=== PATIENT | female | born 1925 | race Caucasian/White ===

== ENCOUNTER 2016-09-24 12:26 | Observation (INO) | payer MEDICARE, BC ==
[~2016-09-24] VITALS: Ht 160 cm; Wt 63.3 kg
[~2016-09-24 12:26] MED LIST: CALCTAB23 PO; DIGO0.12 PO; DIGO1TAB59; ESTR42.5V; GABA100C4 PO; HYDR-3516 PO; LEVO.125 PO; METO50TA PO; MIRA33504 PO; MULT400T PO; TRAM50TA PO; XARE10TA PO; XARE15TA
[2016-09-24 12:32] VITALS: BP 141/90; PULSE 114; RESP 18; TEMP 99.7; O2SAT 92
[2016-09-24] MEDS ORDERED: CENTCHW4 CHEW (12:59)
[2016-09-24] MEDS ORDERED: CALTCHW5 PO (12:59)
[2016-09-24 13:19] LABS: AUTOMATED NEUTROPHIL # 11.8 TH/MM3 (1.8-7.7); BASOPHIL # 0.1 TH/MM3 (0-0.2); BASOPHIL % 0.8 % (0.0-2.0); EOSINOPHIL % 0.1 % (0.0-4.0); HEMATOCRIT 37.8 % (35.0-46.0); LYMPH % 3.8 % (9.0-44.0); LYMPHOCYTE # 0.5 TH/MM3 (1.0-4.8); MEAN CELL VOLUME 89.5 FL (80.0-100.0); MEAN CORPUSCULAR HEMOGLOBIN 30.4 PG (27.0-34.0); MEAN CORPUSCULAR HGB CONC 33.9 % (32.0-36.0); MONO % 4.9 % (0.0-8.0); NEUT % 90.4 % (16.0-70.0); PLATELET COUNT 307 TH/MM3 (150-450); RED BLOOD COUNT 4.23 MIL/MM3 (4.00-5.30); RED CELL DISTRIBUTION WIDTH 13.7 % (11.6-17.2)
[2016-09-24 13:22] LABS: HEMO FLAGS AUTO DIFF
[2016-09-24 13:26] LABS: BLOOD, URINE MOD (NEG); GLUCOSE,URINE NEG (NEG); KETONE, URINE NEG (NEG); METHOD OF COLLECTION CATH; NITRITE,URINE POS (NEG); URINE COLOR YELLOW (YELLW/STRAW)
[2016-09-24 13:28] LABS: BACTERIA, URINE MANY /hpf; COMMENT (UR) CULTURE INDICATED; CULTURE IF INDICATED CULTURE INDICATED
[2016-09-24 13:28] LABS: POTASSIUM 3.8 MEQ/L (3.5-5.1)
[2016-09-24 13:31] LABS: BICARBONATE 28.7 MEQ/L (21.0-32.0)
[2016-09-24] MEDS ORDERED: HYDROmorphone HCL PF 1 MG/ML VIAL IV PUSH ONE (13:45)
[2016-09-24] MEDS ORDERED: ONDANSETRON HCL 4 MG/2 ML VIAL IV PUSH ONE (13:45)
[2016-09-24 13:55] LABS: SCAN/DIFF AUTO DIFF CONFIRMED
[2016-09-24] MEDS ORDERED: SODIUM CHLORID 0.9% 500 ML INJ 500 ML IV ONE (14:00)
[2016-09-24] MEDS ORDERED: cefTRIAXone INJ 1,000 MG in SODIUM CHLORIDE 0.9% INJ 100 ML IV ONE (14:00)
--- NOTE | 2016-09-24 14:05 | PD ---
HPI Chief Complaint: GI Complaint Time Seen by Provider: 12:50 Travel History International Travel<30 days: No Contact w/Intl Traveler<30days: No Traveled to known affect area: No History of Present Illness HPI This 89-year-old female is complaining of lower abdominal pain. She thinks she may be impacted though she did have a bowel movement earlier today. She does urinate quite frequently. She has to strain and sometimes can always get any out. She has a history of chronic back pain. She sees Dr. Chau and he has been injecting her rhomboid muscle because of pain. PFSH Past Medical History Hx Anticoagulant Therapy: Yes Arthritis: Yes Asthma: No Atrial Fibrillation: Yes Blood Disorders: No Anxiety: Yes Depression: No Heart Rhythm Problems: No Cancer: Yes (THYROID) Cardiovascular Problems: Yes High Cholesterol: Yes Chemotherapy: No Chest Pain: No Congestive Heart Failure: No Cerebrovascular Accident: No Diabetes: No (DIET CONTROLLED) Diminished Hearing: No Endocrine: Yes Gastrointestinal Disorders: Yes (GERD) GERD: Yes Glaucoma: No Genitourinary: No Headaches: No Hepatitis: No Hiatal Hernia: Yes Hypertension: Yes Immune Disorder: No Medical other: Yes (HX GASTRIC ULCER) Musculoskeletal: Yes (L SHOULDER PAIN) Neurologic: No Psychiatric: Yes Reproductive: No Respiratory: No Migraines: Yes (AURAS FLASHES ) Myocardial Infarction: Yes Radiation Therapy: No Renal Failure: No Seizures: No Sleep Apnea: No Thyroid Disease: Yes Ulcer: No Influenza Vaccination: Yes ?: Not Menopausal: Yes Past Surgical History Abdominal Surgery: Yes (ROCAEL FEMORAL HERNIA REPAIR) AICD: No Arteriovenous Shunt: No Body Medical Devices: PAIN STIMULATOR Cardiac Surgery: Yes (OPEN HEART SX REPAIR VALVE ; PACEMAKER) Cholecystectomy: No Ear Surgery: No Endocrine Surgery: Yes (THYROID CA. ) Eye Surgery: Yes (ROCAEL CATARACT SX) Genitourinary Surgery: No Gynecologic Surgery: No Insulin Pump: No Joint Replacement: Yes (LEFT SHOULDER) Neurologic Surgery: Yes (LUMBAR LAMINECTOMY) Oral Surgery: Yes (DEVIATED NASAL SEPTUM) Pacemaker: Yes (BIOTRONIC) Thoracic Surgery: Yes (SPINAL STIMULATOR IN LOWER LEFT BACK ) Other Surgery: Yes Social History Alcohol Use: No Tobacco Use: No Substance Use: No Allergies-Medications (Allergen,Severity, Reaction): Coded Allergies: Contrast Media (Verified Allergy, Severe, HIVES, 09/24/16) Quinine (Verified Allergy, Intermediate, SOB, CONGESTION, ITCH, 09/24/16) Reported Meds & Prescriptions Reported Meds & Active Scripts Active Reported Caltrate 600+D Chew (Calcium Carbonate-Vitamin D Chew) 600-400 Mg-Unit Chew 1 Tab PO BID Centrum (Multiple Vitamins W/ Minerals) 1 Chew 1 Tab CHEW DAILY Digitek (Digoxin) 0.125 Mg Tab Xarelto (Rivaroxaban) 15 Mg Tab Synthroid (Levothyroxine Sodium) 125 Mcg Tab 125 Mcg PO DAILY Tramadol (Tramadol HCl) 50 Mg Tab 50 Mg PO Q8H PRN Hydrocodone-Acetaminophen 5-325 mg Tab 1 Tab PO BID PRN Multaq (Dronedarone) 400 Mg Tab 400 Mg PO BID Metoprolol Tartrate 50 Mg Tab 50 Mg PO BID Review of Systems General / Constitutional: No: Fever, Chills Eyes: No: Diploplia, Blurred Vision HENT: No: Headaches, Vertigo Cardiovascular: No: Chest Pain or Discomfort Respiratory: No: Cough Gastrointestinal: Positive: Abdominal Pain, Constipation, No: Nausea, Hematemesis, Hematochezia Genitourinary: Positive: Urgency, Frequency Musculoskeletal: No: Myalgias, Arthralgias Skin: No Rash Neurologic: Positive: Weakness Endocrine: No: Heat Intolerance Hematologic/Lymphatic: No: Easy Bruising Physical Exam Narrative GENERAL: Thin female. Heart rate on arrival 114. Temp is 99 7 SKIN: Focused skin assessment warm/dry. HEAD: Atraumatic. Normocephalic. EYES: Pupils equal and round. No scleral icterus. No injection or drainage. ENT: No nasal bleeding or discharge. Mucous membranes pink and moist. NECK: Trachea midline. No JVD. CARDIOVASCULAR: Rapid Regular rate and rhythm. No murmur appreciated. RESPIRATORY: No accessory muscle use. Clear to auscultation. Breath sounds equal bilaterally. GASTROINTESTINAL: Abdomen soft, there is bilateral lower abdominal tenderness, nondistended. Hepatic and splenic margins not palpable. Rectal exam was done. There are no masses. Stool is brown and guaiac negative MUSCULOSKELETAL: No obvious deformities. No clubbing. No cyanosis. No edema. NEUROLOGICAL: Awake and alert. No obvious cranial nerve deficits. Motor grossly within normal limits. Normal speech. PSYCHIATRIC: Appropriate mood and affect; insight and judgment normal. Data Data Last Documented VS Vital Signs Date Time Temp Pulse Resp B/P Pulse Ox O2 Delivery O2 Flow Rate FiO2 09/24/16 14:40 90 18 136/71 95 Nasal Cannula 2 09/24/16 12:32 99.7 Orders Complete Blood Count With Diff (09/24/16 12:57) Basic Metabolic Panel (Bmp) (09/24/16 12:57) Urinalysis - C+S If Indicated (09/24/16 12:57) Bladder Scan PRN (09/24/16 12:57) Ct Abd/Pel W/O Iv Contrast (09/24/16 ) Urine Culture (09/24/16 13:15) Ondansetron Inj (Zofran Inj) (09/24/16 13:45) Hydromorphone Pf Inj (Dilaudid Pf Inj) (09/24/16 13:45) Ceftriaxone Inj (Rocephin Inj) (09/24/16 14:00) Blood Culture (09/24/16 13:54) Sodium Chlorid 0.9% 500 Ml Inj (Ns 500 M (09/24/16 14:00) Chest, Single Ap (09/24/16 13:57) Lactic Acid Sepsis Protocol (09/24/16 14:36) Electrocardiogram (09/24/16 12:33) Labs Laboratory Tests Test 09/24/16 09/24/16 13:10 13:15 White Blood Count 13.0 TH/MM3 Red Blood Count 4.23 MIL/MM3 Hemoglobin 12.8 GM/DL Hematocrit 37.8 % Mean Corpuscular Volume 89.5 FL Mean Corpuscular Hemoglobin 30.4 PG Mean Corpuscular Hemoglobin 33.9 % Concent Red Cell Distribution Width 13.7 % Platelet Count 307 TH/MM3 Mean Platelet Volume 6.3 FL Neutrophils (%) (Auto) 90.4 % Lymphocytes (%) (Auto) 3.8 % Monocytes (%) (Auto) 4.9 % Eosinophils (%) (Auto) 0.1 % Basophils (%) (Auto) 0.8 % Neutrophils # (Auto) 11.8 TH/MM3 Lymphocytes # (Auto) 0.5 TH/MM3 Monocytes # (Auto) 0.6 TH/MM3 Eosinophils # (Auto) 0.0 TH/MM3 Basophils # (Auto) 0.1 TH/MM3 CBC Comment AUTO DIFF Differential Comment AUTO DIFF CONFIRMED Sodium Level 139 MEQ/L Potassium Level 3.8 MEQ/L Chloride Level 102 MEQ/L Carbon Dioxide Level 28.7 MEQ/L Anion Gap 8 MEQ/L Blood Urea Nitrogen 20 MG/DL Creatinine 0.80 MG/DL Estimat Glomerular Filtration 68 ML/MIN Rate Random Glucose 114 MG/DL Calcium Level 8.8 MG/DL Urine Collection Type CATH Urine Color YELLOW Urine Turbidity CLOUDY Urine pH 6.0 Urine Specific [place] 1.021 Urine Protein TRACE mg/dL Urine Glucose (UA) NEG mg/dL Urine Ketones NEG mg/dL Urine Occult Blood MOD Urine Nitrite POS Urine Bilirubin NEG Urine Leukocyte Esterase MOD Urine WBC 25-49 /hpf Urine Bacteria MANY /hpf Microscopic Urinalysis Comment CULTURE INDICATED MDM Medical Decision Making Medical Screen Exam Complete: Yes Emergency Medical Condition: Yes Medical Record Reviewed: Yes Differential Diagnosis Differential includes UTI, constipation, diverticulitis Narrative Course Count is elevated at 13,000. Urine shows 25-[address] shows a mass in the left kidney which could be a renal carcinoma or cyst. There is a right adnexal mass and a large hiatal hernia. Impression is UTI, possible sepsis Sepsis Criteria SIRS Criteria (2 or more): Heart rate over 90, WBC > 26109, < 4000 or > 10% bands Sepsis Criteria (SIRS+source): Infect source susp/known Diagnosis Primary Impression: Urinary tract infection Qualified Code: N30.00 - Acute cystitis without hematuria Additional Impression: Sepsis Qualified Code: A41.9 - Sepsis, due to unspecified organism Admitting Information Admitting Physician Requests: Observation Peter Avendano MD Sep 24, 2016 14:05
[2016-09-24 14:40] VITALS: BP 136/71; PULSE 90; RESP 18; O2SAT 95
--- NOTE | 2016-09-24 15:08 | RADRPT ---
EXAM DATE/TIME: 09/24/2016 14:15 [facility] COMPARISON: No previous studies available for comparison. INDICATIONS : Lower abdominal pain. ORAL CONTRAST: No oral contrast ingested. RADIATION DOSE: 6.06 CTDIvol (mGy) MEDICAL HISTORY : Cardiovascular disease. Gastroesophageal reflux disease. Carcinoma, thyroid. SURGICAL HISTORY : Pacemaker. Hernia repair. Lumbar laminectomy. Spinal stimulator. ENCOUNTER: Initial ACUITY: 1 day PAIN SCALE: 3/10 LOCATION: lower quadrant TECHNIQUE: Volumetric scanning of the abdomen and pelvis was performed. Using automated exposure control and adjustment of the mA and/or kV according to patient size, radiation dose was kept as low as reasonably achievable to obtain optimal diagnostic quality images. DICOM format image data is av ailable electronically for review and comparison. FINDINGS: CT Abdomen: There is an approximate 1.6 cm mass exophytic coming off the left kidney. The liver, sple en, pancreas, right kidney, adrenals are unremarkable. There is no evidence for any appreciable patho logical adenopathy, free fluid, or bowel obstruction. There is a large hernia through the posterior portion of the hemidiaphragm on the right side medially with the stomach lying in the patient's chest for the most part. CT pelvis: There is and approximate 5 x 5.5 cm cystic mass in the right adnexa. There is moderate caroline unt of stool throughout the colon. CONCLUSION: 1. Left solid renal mass could be a complicated cyst, however renal cell carcinoma could also have th is appearance. 2. Large hiatal hernia. 3. Right adnexal cystic mass most likely ovarian. Matty Falk MD on September 24, 2016 at 15:02 Board Certified Radiologist. This report was verified electronically.
--- NOTE | 2016-09-24 15:17 | RADRPT ---
EXAM DATE/TIME: 09/24/2016 14:13 [facility] COMPARISON: CT ABDOMEN & PELVIS W/O CONTRAST, September 24, 2016, 14:15. CHEST SINGLE AP, January 18, 2014, 10:37. INDICATIONS : Fever, posterior chest pain MEDICAL HISTORY : Cardiovascular disease. SURGICAL HISTORY : Pacemaker. CABG. ENCOUNTER: Initial ACUITY: 2 days PAIN SCORE: 10/10 LOCATION: Bilateral chest FINDINGS: The lungs are clear without infiltrate, nodule, or mass. There is no appreciable pleural effusion fo r technique. Heart and mediastinum are unremarkable. Left subclavian pacer wires are present with ti ps in the right atrium and right ventricle. Huge hiatal hernia is seen. CONCLUSION: No acute cardiopulmonary disease. Matty Falk MD on September 24, 2016 at 15:15 Board Certified Radiologist. This report was verified electronically.
[2016-09-24] MEDS ORDERED: SODIUM CHLORIDE 0.9% FLUSH 10 ML FLUSH IV FLUSH PRN (15:45)
[2016-09-24] MEDS ORDERED: ONDANSETRON HCL 4 MG/2 ML VIAL IVP PRN (15:45)
[2016-09-24] MEDS ORDERED: ACETAMINOPHEN 325 MG TAB PO PRN (15:45)
[2016-09-24] MEDS ORDERED: DOCUSATE SODIUM 50 MG/SENNA 8.6 MG TAB PO PRN (15:45)
[2016-09-24] MEDS ORDERED: DEXTROSE 50% IN WATER 50 ML VIAL(D50) IV PRN (16:00)
[2016-09-24] MEDS ORDERED: GLUCAGON 1 MG/ML VIAL OTHER PRN (16:00)
[2016-09-24] MEDS: INSULIN ASPART SUPPLEMENTAL SCALE SQ SCH ×2 (16:00→21:00)
[2016-09-24] MEDS: SODIUM CHLOR 0.9% 1000 ML INJ 1,000 ML IV SCH (16:19)
[2016-09-24 16:32] VITALS: BP 147/85; PULSE 88; RESP 18; O2SAT 97
[2016-09-24] MEDS ORDERED: oxyCODONE/ACETAMINOPHEN 10 MG/325 MG TAB PO PRN (17:00)
[2016-09-24] MEDS ORDERED: MORPHINE SULFATE 8 MG/ML INJ IV PUSH PRN ×2 (17:30)
--- NOTE | 2016-09-24 17:41 | HHI.HP ---
[facility] Service [facility] Primary Care Physician Khloe Nix MD Admission Diagnosis UTI, SEPSIS Diagnoses: Chief Complaint: Right shoulder pain, lower abdominal discomfort, dysuria urgency frequency Travel History International Travel<30 Days: No Contact w/Intl Traveler <30 Da: No Traveled to Known Affected Are: No History of Present Illness 89 years old female with history of chronic pain presented to the ED complaining of right shoulder pain and lower abdominal discomfort and dysuria. Also she complained of constipation patient thought she had fecal impact patient. Dysuria urgency and frequency. Patient followed Dr. Chau for pain management. She denied any fever or chills, reported occasional night sweat, she's not sure about weight loss. In ED she was found to have a positive UA for UTI, and CT abdomen showed left solid renal mass suspicious for RCC. Patient started on a dose of Rocephin and a dose of Dilaudid for her pain. 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 fib CHF GRD Spinal stenosis Urinary incontinence Past Surgical History Shoulder surgery Thyroidectomy Umbilical hernia repair Back surgery for spinal stenosis Heart Valve repair Right breast biopsy and left breast biopsy Cataract surgery Allergies: Coded Allergies: Contrast Media (Verified Allergy, Severe, HIVES, 09/24/16) Quinine (Verified Allergy, Intermediate, SOB, CONGESTION, ITCH, 09/24/16) Family History No significant history of cancer or heart disease per the patient Social History Patient is a no alcohol or illicit drug abuse, she quit smoking in 1949 Physical Exam Vital Signs Vital Signs Date Time Temp Pulse Resp B/P Pulse Ox O2 Delivery O2 Flow Rate FiO2 09/24/16 16:32 88 18 147/85 97 Nasal Cannula 2 09/24/16 14:40 90 18 136/71 95 Nasal Cannula 2 09/24/16 14:19 18 09/24/16 12:32 99.7 114 18 141/90 92 Physical Exam GENERAL: This is a well-nourished, well-developed patient, in no apparent distress. SKIN: No rashes, warm and dry HEAD: Atraumatic. Normocephalic. EYES: Pupils equal round and reactive. Extraocular motions intact. No scleral icterus. ENT: Nose without bleeding, or drainage, Airway patent. NECK: Trachea midline. Supple CARDIOVASCULAR: Regular rate and rhythm without murmurs, gallops, or rubs. RESPIRATORY: Fair air entry bilaterally. No wheezes, rales, or rhonchi. GASTROINTESTINAL: Abdomen soft, non-tender, nondistended. Positive bowel sounds MUSCULOSKELETAL: Extremities without clubbing, cyanosis, or edema. Pedal pulses appreciated NEUROLOGICAL: Awake and alert. Moves all extremity. Normal speech.no focal neurological deficit Laboratory Laboratory Tests Test 09/24/16 09/24/16 09/24/16 13:10 13:15 14:35 White Blood Count 13.0 Red Blood Count 4.23 Hemoglobin 12.8 Hematocrit 37.8 Mean Corpuscular Volume 89.5 Mean Corpuscular Hemoglobin 30.4 Mean Corpuscular Hemoglobin 33.9 Concent Red Cell Distribution Width 13.7 Platelet Count 307 Mean Platelet Volume 6.3 Neutrophils (%) (Auto) 90.4 Lymphocytes (%) (Auto) 3.8 Monocytes (%) (Auto) 4.9 Eosinophils (%) (Auto) 0.1 Basophils (%) (Auto) 0.8 Neutrophils # (Auto) 11.8 Lymphocytes # (Auto) 0.5 Monocytes # (Auto) 0.6 Eosinophils # (Auto) 0.0 Basophils # (Auto) 0.1 CBC Comment AUTO DIFF Differential Comment AUTO DIFF CONFIRMED Sodium Level 139 Potassium Level 3.8 Chloride Level 102 Carbon Dioxide Level 28.7 Anion Gap 8 Blood Urea Nitrogen 20 Creatinine 0.80 Estimat Glomerular Filtration 68 Rate Random Glucose 114 Calcium Level 8.8 Urine Collection Type CATH Urine Color YELLOW Urine Turbidity CLOUDY Urine pH 6.0 Urine Specific [place] 1.021 Urine Protein TRACE Urine Glucose (UA) NEG Urine Ketones NEG Urine Occult Blood MOD Urine Nitrite POS Urine Bilirubin NEG Urine Leukocyte Esterase MOD Urine WBC 25-49 Urine Bacteria MANY Microscopic Urinalysis Comment CULTURE INDICATED Lactic Acid Level 1.3 Date/Time Procedure Status Source Growth 09/24/16 14:35 Aerobic Blood Culture Received Blood Peripheral Pending 09/24/16 14:35 Anaerobic Blood Culture Received Blood Peripheral Pending 09/24/16 13:15 Urine Culture Received Urine Catheterized Urine Pending Result Diagram: 09/24/16 1310 09/24/16 1310 Imaging Last Impressions Chest X-Ray 09/24/16 1357 Signed Impressions: Service Date/Time: Saturday, September 24, 2016 14:13 - CONCLUSION: No acute cardiopulmonary disease. Matty Falk MD Abdomen/Pelvis CT 09/24/16 0000 Signed Impressions: Service Date/Time: Saturday, September 24, 2016 14:15 - CONCLUSION: 1. Left solid renal mass could be a complicated cyst, however renal cell carcinoma could also have this appearance. 2. Large hiatal hernia. 3. Right adnexal cystic mass most likely ovarian. Matty Falk MD Assessment and Plan Assessment and Plan 89 years old female admitted with Suspect sepsis mostly UTI source(leukocytosis WBC 13 K, neutrophil 90%, heart rate 140) UTI Left solid renal mass on CT abdomen Right shoulder pain with history of chronic pain H/O hyaloid tumor status post thyroidectomy DVT prophylaxis SCD and heparin Plan: Admit for observation CBC BMP, CT abdomen personally reviewed by me Iv fluid Rocephin Consult urology for left renal mass Follow urine culture Pain management with morphine and [place] Discussed Condition With Patient in ED physician Jaz Medina MD Sep 24, 2016 17:41
[2016-09-24 18:41] VITALS: BP 141/66; PULSE 81; RESP 20; TEMP 99; O2SAT 95
[2016-09-24] MEDS: ACETAMINOPHEN/HYDROcodone 325 MG/5 MG TAB PO PRN (20:22)
[2016-09-24] MEDS: FAMOTIDINE 20 MG TAB PO SCH (20:22)
[2016-09-24] MEDS: SODIUM CHLORIDE 0.9% FLUSH 10 ML FLUSH IV FLUSH SCH (20:23)
[2016-09-24 22:11] VITALS: BP 129/59; PULSE 79; RESP 16; TEMP 98.6; O2SAT 94
[2016-09-25 01:24] VITALS: BP 119/59; PULSE 70; RESP 18; TEMP 98.9; O2SAT 98
[2016-09-25] MEDS: INSULIN ASPART SUPPLEMENTAL SCALE SQ SCH ×4 (05:59→20:47)
[2016-09-25 06:39] LABS: AUTOMATED NEUTROPHIL # 7.3 TH/MM3 (1.8-7.7); BASOPHIL % 0.4 % (0.0-2.0); EOSINOPHIL % 0.4 % (0.0-4.0); HEMATOCRIT 35.9 % (35.0-46.0); HEMO FLAGS DIFF FINAL; LYMPH % 11.1 % (9.0-44.0); MEAN CELL VOLUME 90.2 FL (80.0-100.0); MEAN CORPUSCULAR HEMOGLOBIN 29.7 PG (27.0-34.0); MEAN CORPUSCULAR HGB CONC 32.9 % (32.0-36.0); MONO % 7.4 % (0.0-8.0); NEUT % 80.7 % (16.0-70.0); PLATELET COUNT 277 TH/MM3 (150-450); RED BLOOD COUNT 3.99 MIL/MM3 (4.00-5.30); RED CELL DISTRIBUTION WIDTH 13.9 % (11.6-17.2)
[2016-09-25 06:55] LABS: POTASSIUM 3.5 MEQ/L (3.5-5.1)
[2016-09-25 06:59] LABS: BICARBONATE 27.4 MEQ/L (21.0-32.0)
[2016-09-25] MEDS: SODIUM CHLOR 0.9% 1000 ML INJ 1,000 ML IV SCH ×2 (07:06→09:10)
[2016-09-25 08:00] VITALS: BP 118/56; PULSE 115; RESP 16; TEMP 98.5; O2SAT 95
[2016-09-25] MEDS: SODIUM CHLORIDE 0.9% FLUSH 10 ML FLUSH IV FLUSH SCH ×2 (09:00→20:47)
[2016-09-25] MEDS: FAMOTIDINE 20 MG TAB PO SCH ×2 (09:08→20:46)
[2016-09-25] MEDS: ACETAMINOPHEN/HYDROcodone 325 MG/5 MG TAB PO PRN ×3 (09:09→20:46)
--- NOTE | 2016-09-25 09:10 | RADRPT ---
EXAM DATE/TIME: 09/25/2016 08:24 [facility] COMPARISON: CT ABDOMEN & PELVIS W/O CONTRAST, September 24, 2016, 14:15. INDICATIONS : Left renal mass. MEDICAL HISTORY : Hypothyroidism. Myocardial infarction. Gastroesophageal reflux disease. Hypertension. Hyperlipidemia. A-fib. Hiatal hernia. Thyroid cancer. Gastric ulcer. SURGICAL HISTORY : Pacemaker. ENCOUNTER: Subsequent ACUITY: 1 day PAIN SCORE: 0/10 LOCATION: Bilateral flank MEASUREMENTS: RIGHT KIDNEY: 11.7 x 4.8 x 4.2 cm LEFT KIDNEY: 10.9 x 4.1 x 5.4 cm FINDINGS: RIGHT KIDNEY: Renal cortex is thinned with normal echotexture. No hydronephrosis, stone, or mass. LEFT KIDNEY: there is some cortical thinning. Normal echogenicity. Small hypoechoic lesion on th e upper pole slightly exophytic measures 2.2 x 2.2 cm. No definite flow. BLADDER: Within normal limits given the degree of distension. CONCLUSION: 1. Small mass upper pole, likely solid. Small renal cell carcinoma cannot be excluded. Contrasted MRI recommended for further characterization. 2. Cortical thinning without hydronephrosis. Darrel Damian MD on September 25, 2016 at 9:05 Board Certified Radiologist. This report was verified electronically.
--- NOTE | 2016-09-25 10:45 | HHI.PR ---
Subjective Remarks Patient today still complaining of lower abdominal pain around 5 out of 6 Fever or chills, she denied burning sensation/dysuria today Awaiting neurology consultation Continue iv antibiotic for UTI Objective Vitals Vital Signs Date Time Temp Pulse Resp B/P Pulse Ox O2 Delivery O2 Flow Rate FiO2 09/25/16 08:00 98.5 115 16 118/56 95 09/25/16 04:00 09/25/16 01:24 98.9 70 18 119/59 98 09/24/16 22:11 98.6 79 16 129/59 94 09/24/16 18:41 99.0 81 20 141/66 95 09/24/16 16:32 88 18 147/85 97 Nasal Cannula 2 09/24/16 14:40 90 18 136/71 95 Nasal Cannula 2 09/24/16 14:19 18 09/24/16 12:32 99.7 114 18 141/90 92 I/O 09/24/16 09/24/16 09/24/16 09/25/16 09/25/16 09/25/16 06:59 14:59 22:59 06:59 14:59 22:59 Intake Total 1020 ml 750 ml Output Total 100 ml 550 ml Balance 920 ml 200 ml Intake Oral 120 ml IV Total 900 ml 750 ml Output Urine Total 100 ml 550 ml Bladder Scan Volume Amount 0 ml # Voids 1 2 2 Result Diagram: 09/25/16 0612 09/25/16 0612 Objective Remarks GENERAL: This is a well-nourished, well-developed patient, in no apparent distress. SKIN: No rashes, warm and dry HEAD: Atraumatic. Normocephalic. EYES: Pupils equal round and reactive. Extraocular motions intact. No scleral icterus. ENT: Nose without bleeding, or drainage, Airway patent. NECK: Trachea midline. Supple CARDIOVASCULAR: Regular rate and rhythm without murmurs, gallops, or rubs. RESPIRATORY: Fair air entry bilaterally. No wheezes, rales, or rhonchi. GASTROINTESTINAL: Abdomen soft, non-tender, nondistended. Positive bowel sounds MUSCULOSKELETAL: Extremities without clubbing, cyanosis, or edema. Pedal pulses appreciated NEUROLOGICAL: Awake and alert. Moves all extremity. Normal speech.no focal neurological deficit A/P Assessment and Plan 89 years old female admitted with Suspect sepsis mostly UTI source(leukocytosis WBC 13 K, neutrophil 90%, heart rate 140) UTI Left solid renal mass on CT abdomen Right shoulder pain with history of chronic pain H/O hyaloid tumor status post thyroidectomy DVT prophylaxis SCD and heparin Plan: Awaiting neurology consultation Monitor CBC BMP, CT abdomen personally reviewed by me Iv fluid Continue Rocephin iv Follow urine culture Pain management with morphine and [place] Jaz Medina MD Sep 25, 2016 10:45
[2016-09-25 12:00] VITALS: BP 101/60; PULSE 113; RESP 18; TEMP 96.6; O2SAT 92
--- NOTE | 2016-09-25 13:51 | MB ---
cc: BRIAN CADENA MD DATE OF CONSULTATION: 09/25/2016 REASON FOR CONSULTATION 1. A 2 cm left renal mass suspicious for renal cell carcinoma. 2. UTI. HISTORY OF PRESENT ILLNESS The patient is a 89-year-old female who presented to the ER yesterday afternoon with complaints of lower abdominal pain and dysuria. She also complained of inability to have a bowel movement and it was thought she had a fecal impaction. This coincided with her dysuria, urinary urgency and frequency. She had a CT of the abdomen and pelvis with contrast done which showed approximately 2 centimeter exophytic solid left renal mass suspicious for renal cell carcinoma. Urology was consulted for this finding. The patient denies any flank pain or hematuria, fevers or chills, nausea at this time. She denies history of kidney stones or previous genitourinary malignancies. She does have a remote history of tobacco use in the past. She denies any unexplained weight loss or any unusual bone or back pain. She does follow with Dr. Chau for pain management due to lower back issues. She feels much better today. She denies any lower abdominal pain at this time. REVIEW OF SYSTEMS See HPI, otherwise all systems reviewed otherwise are negative. PAST MEDICAL HISTORY Significant for: 1. Thyroid cancer. 2. Type 2 diabetes. 3. Hyperlipidemia. 4. Mitral valve insufficiency. 5. Atrial fibrillation. 6. CHF. 7. Gastroesophageal reflux disease. 8. Bowel stenosis. 9. Urinary incontinence. 10. History of UTIs. PAST SURGICAL HISTORY 1. Cataract surgery. 2. Heart valve repair. 3. Back surgery for spinal stenosis. 4. Umbilical hernia repair. 5. Thyroidectomy. 6. Shoulder surgery. ALLERGIES CONTRAST MEDIA. FAMILY HISTORY Denies urolithiasis or genitourinary malignancies. SOCIAL HISTORY The patient is a and denies illicit drug or alcohol use. She quit smoking approximately 50 years ago. PHYSICAL EXAMINATION VITAL SIGNS: Temperature 96.6, pulse 113, respiratory rate 18, BP 101/60, sating 98% on room air. GENERAL: She is alert and oriented x3. No acute distress, pleasant and cooperative lady who appears younger than her stated age. HEAD: Head is normocephalic, atraumatic. NECK: Neck is supple. Trachea is midline. No JVD. SKIN: No ulcers or rashes. Mucous membranes are pink and moist. EYES: External muscles are intact. No scleral icterus. LUNGS: Clear to auscultation bilatrally. No wheezes, gallops, rubs. CARDIOVASCULAR: Irregularly, irregular rate and rhythm. No murmurs, gallops, rubs. ABDOMEN: Soft, nontender, nondistended. Positive bowel sounds. GENITOURINARY: No CVA tenderness bilaterally. PELVIC: Not indicated at this time. EXTREMITIES: Nontender with no clubbing, cyanosis or edema. NEUROLOGIC: Cranial nerves II-XII intact. Strength is 5/5 in all four extremities. PSYCHE: Normal affect. LABORATORY DATA Labs show a white count 9.0, hemoglobin 11.8, hematocrit 35.9, platelet count 277. Sodium 141, potassium 3.5, chloride 106, bicarb 27.4, BUN 14, creatinine was 0.64. Her urine showed positive nitrate, moderate blood, moderate leukocyte esterase, culture currently pending. IMAGING STUDIES CT abdomen and pelvis with contrast images were reviewed. Per the radiologist report, the patient has a 2 cm exophytic left upper pole solid renal mass suspicious for renal cell carcinoma. ASSESSMENT The patient is an 89-year-old female with history of urinary tract infection, admitted with lower abdominal pain and was found to have incidental 2 cm exophytic left renal mass. PLAN The patient had a followup renal ultrasound this morning which confirmed the presence of a 2 cm exophytic left renal mass, appeared to be solid in nature, suspicious for renal cell carcinoma. I discussed treatment options with the patient including active surveillance versus percutaneous biopsy with subsequent cryoablation versus surgical removal of the mass. I discussed the advantages, disadvantages, potential side effects, complications of each. In my opinion due to her age and size of the mass and the fact that approximately 20% of these masses less than 3 cm are benign in nature, that would proceed with active surveillance going forward, meaning a renal ultrasound in 4 months to evaluate for growth. If the tumor decides to grow then would proceed with having radiology biopsy it, perform cryoablation. Otherwise, if the mass remains stable, would just continue following it going forward. From a urology standpoint she is okay to be discharged. She can follow up in the office and will repeat renal ultrasound in 4 months. MD JACEK Dodd/TLRandy /1:11 PM /1:27 PM
[2016-09-25] MEDS ORDERED: cefTRIAXone INJ 2,000 MG in SODIUM CHLORIDE 0.9% INJ 100 ML IV SCH (14:00)
[2016-09-25 16:00] VITALS: BP 107/64; PULSE 80; RESP 18; TEMP 96.2; O2SAT 96
[2016-09-25 20:00] VITALS: BP 105/56; PULSE 70; RESP 16; TEMP 96.8; O2SAT 95
[2016-09-26] VITALS: BP 109/59; PULSE 70; RESP 16; TEMP 97.3; O2SAT 93
[2016-09-26] MEDS: SODIUM CHLOR 0.9% 1000 ML INJ 1,000 ML IV SCH (02:41)
[2016-09-26] MEDS: ACETAMINOPHEN/HYDROcodone 325 MG/5 MG TAB PO PRN ×2 (04:33→12:48)
[2016-09-26] MEDS: INSULIN ASPART SUPPLEMENTAL SCALE SQ SCH (06:14)
[2016-09-26 08:00] VITALS: BP 161/85; PULSE 119; RESP 19; TEMP 97.6; O2SAT 94
[2016-09-26] MEDS: SODIUM CHLORIDE 0.9% FLUSH 10 ML FLUSH IV FLUSH SCH (09:00)
[2016-09-26] MEDS: FAMOTIDINE 20 MG TAB PO SCH (09:27)
[2016-09-26] MEDS ORDERED: DRONEDARONE 400 MG TAB PO SCH (10:15)
[2016-09-26] MEDS ORDERED: METOPROLOL TARTRATE 50 MG TAB PO SCH (10:15)
[2016-09-26] MEDS ORDERED: CEFU1TAB20 PO (10:23)
[2016-09-26] MEDS ORDERED: MULT400T PO (11:22)
--- NOTE | 2016-09-26 11:23 | HHI.PR ---
Subjective Remarks Patient stable today doing well No acute issue she is ready to be discharged I got her home meds rec showing that she is on Multaq digoxin and Lopressor as well as Xarelto, recall , the office to verify that she was on medications a week old cardiology Dr. Perdue and his office confirmed these medication Objective Vitals Vital Signs Date Time Temp Pulse Resp B/P Pulse Ox O2 Delivery O2 Flow Rate FiO2 09/26/16 08:00 97.6 119 19 161/85 94 09/26/16 00:00 97.3 70 16 109/59 93 09/25/16 20:00 96.8 70 16 105/56 95 09/25/16 16:41 16 09/25/16 16:00 96.2 80 18 107/64 96 09/25/16 12:00 96.6 113 18 101/60 92 I/O 09/25/16 09/25/16 09/25/16 09/26/16 09/26/16 09/26/16 06:59 14:59 22:59 06:59 14:59 22:59 Intake Total 750 ml 1610 ml 195 ml 520 ml Output Total 550 ml 150 ml 300 ml 500 ml Balance 200 ml 1460 ml -105 ml 20 ml Intake Oral 360 ml IV Total 750 ml 1250 ml 195 ml 520 ml Output Urine Total 550 ml 150 ml 300 ml 500 ml # Voids 2 2 # Bowel Movements 1 3 Result Diagram: 09/25/1661109/25/16 06 Objective Remarks GENERAL: This is a well-nourished, well-developed patient, in no apparent distress. SKIN: No rashes, warm and dry HEAD: Atraumatic. Normocephalic. EYES: Pupils equal round and reactive. Extraocular motions intact. No scleral icterus. ENT: Nose without bleeding, or drainage, Airway patent. NECK: Trachea midline. Supple CARDIOVASCULAR: Regular rate and rhythm without murmurs, gallops, or rubs. RESPIRATORY: Fair air entry bilaterally. No wheezes, rales, or rhonchi. GASTROINTESTINAL: Abdomen soft, non-tender, nondistended. Positive bowel sounds MUSCULOSKELETAL: Extremities without clubbing, cyanosis, or edema. Pedal pulses appreciated NEUROLOGICAL: Awake and alert. Moves all extremity. Normal speech.no focal neurological deficit A/P Assessment and Plan 89 years old female admitted with Sepsis mostly UTI source(leukocytosis WBC 13 K, neutrophil 90%, heart rate 140) UTI with Escherichia coli Left solid renal mass on CT abdomen Right shoulder pain with history of chronic pain H/O hyaloid tumor status post thyroidectomy DVT prophylaxis SCD and heparin Plan: Appreciate urology consultation, patient was given option of biopsy versus follow up in 4 months with ultrasound she chose the latter. Will discharge on by mouth antibiotic will chew Ceftin over Cipro due to patient being on Multaq to avoid side effect of prolonged QT Stable CBC BMP, CT abdomen personally reviewed by me Iv fluid Status post Rocephin iv Follow urine culture Pain management with morphine and [place] Discharge patient to home Condition on discharge: Improved Healthy heart Diet as tolerated Ad Conchita activity Rx written: Ceftin Follow-up with primary care physician in one week, urology as directed Jaz Medina MD Sep 26, 2016 11:23
[2016-09-26] MEDS ORDERED: RIVAROXABAN 15 MG TAB PO SCH (11:30)
--- NOTE | 2016-09-26 14:15 | EKG ---
Date Performed: 09/24/2016 Time Performed: 12:33:24 PTAGE: 89 years EKG: ELECTRONIC VENTRICULAR PACEMAKER Compared to previous tracing heart rate has increased, und erlying rhythm has changed from Sinus rhythm with ventricular pacing to atrial fibrillation with ventricular pacing and t[place] beat Clinical jalil elation recommended. Heart rate has increased significantly ABNORMAL RHYTHM ECG PREVIOUS TRACING : 01/18/2014 10.32 DOCTOR: Ankit Wells Interpretating Date/Time 09/26/2016 14:13:34
[2016-09-27] MEDS ORDERED: LEVOTHYROXINE SODIUM 125 MCG TAB PO SCH (06:00)
== END 2016-09-26 14:45 | disposition home or self-care (01) ==
LOC: PHED 12:26 → PHEDA 15:37 → PH3B 18:09
PROVIDERS: ADMIT Hospitalist; ATTEND Hospitalist
DX: N30.00 Acute cystitis without hematuria (principal); A41.9 Sepsis, unspecified organism; B96.20 Unspecified Escherichia coli [E. coli] as the cause of diseases classified elsewhere; N28.89 Other specified disorders of kidney and ureter; M25.511 Pain in right shoulder; G89.29 Other chronic pain; E11.9 Type 2 diabetes mellitus without complications; E78.5 Hyperlipidemia, unspecified; I48.91 Unspecified atrial fibrillation; I11.0 Hypertensive heart disease with heart failure; M48.00 Spinal stenosis, site unspecified; K44.9 Diaphragmatic hernia without obstruction or gangrene; R32 Unspecified urinary incontinence; Z85.850 Personal history of malignant neoplasm of thyroid; I34.0 Nonrheumatic mitral (valve) insufficiency; K21.9 Gastro-esophageal reflux disease without esophagitis; Z95.0 Presence of cardiac pacemaker
CPT/HCPCS: 71010; 74176; 76775; 80048; 81001; 82948; 83605; 85025; 87040; 87077; 87086; 87186; 93005; 96361; 96365; 96375; 97162; 99285; G0378; G8987; G8988; J0696; J1170; J2405; J7030; J7040; P9612